=== PATIENT | male | born 1970 | race Two or more races ===

== ENCOUNTER → 2023-04-21 07:44 | Outpatient (CLI) | payer OTHER | END | disposition home or self-care (01) | LOC: NUCLEAR 07:44 | PROVIDERS: ATTEND Internal Medicine Gastroenterology | DX: C20 Malignant neoplasm of rectum (principal) ==

== ENCOUNTER 2023-06-07 11:30 | Inpatient (IN) | payer OTHER ==
[~2023-06-07] VITALS: Ht 172.7 cm; Wt 85.3 kg
[2023-06-13] MEDS ORDERED: CLONAZEPAM0.5 MG (10:05)
[2023-06-13] MEDS ORDERED: ESCITALOPRAM OX10 MG (10:05)
[2023-06-13] MEDS ORDERED: METRONIDAZOLE/SODIUM CHLORIDE 500 MG/100 ML PIGGYBACK IV ONE ×2 (10:38→15:43)
[2023-06-13] MEDS ORDERED: CEFTRIAXONE SODIUM 2,000 MG VIAL ONE (10:38)
[2023-06-13] MEDS ORDERED: MORPHINE SULFATE 4 MG/ML CARTRIDGE IV PRN (11:30)
[2023-06-13] MEDS ORDERED: 0.9 % SODIUM CHLORIDE 1,000 ML IV SCH (11:30)
[2023-06-13] MEDS ORDERED: ONDANSETRON HCL 2 MG/ML VIAL IV PRN (11:30)
[2023-06-13] MEDS ORDERED: OxyCODONE HCL 5 MG TABLET (ROXICODONE) PO PRN (11:30)
[2023-06-13] MEDS ORDERED: DEXTROSE 50 % IN WATER 0.5 G/ML DISP.SYRIN IV PRN (11:30)
[2023-06-13] MEDS ORDERED: CEFTRIAXONE SODIUM 2,000 MG VIAL IV SCH (12:00)
[2023-06-13] MEDS ORDERED: LIDOCAINE HCL 1%/Epi 20ML VIAL IJ ONE (12:00)
[2023-06-13] MEDS ORDERED: BUPIVACAINE HCL/PF 0.5% 30ML ML IJ ONE (12:00)
[2023-06-13] MEDS ORDERED: METRONIDAZOLE/SODIUM CHLORIDE 500 MG/100 ML PIGGYBACK IV SCH ×2 (12:00→17:00)
[2023-06-13] MEDS ORDERED: HYOSCYAMINE SULFATE 0.125 MG TAB.SUBL SL SCH (13:00)
[2023-06-13] MEDS ORDERED: ACETAMINOPHEN 500 MG GEL..CAP PO SCH (14:00)
[2023-06-13] MEDS ORDERED: ONDANSETRON HCL 2 MG/ML VIAL ONE (15:43)
[2023-06-13] MEDS ORDERED: INSULIN LISPRO 1,000 UNIT/10 ML UNITS SUBCUTANEO SCH (16:00)
[2023-06-13] MEDS ORDERED: GABAPENTIN 300 MG CAPSULE PO SCH (17:00)
[2023-06-13 18:11] LABS: ABG PH 7.407 (7.35-7.45); ABG PO2 60.3 mmHg (80-100); ABG pCO2 42.8 mmHg (35-45); BASE EXCESS 1.4 mmol/l; BICARBONATE 26.3 mmol/l (23-25); Tco2 27.6 mmol/l
[2023-06-13 18:12] LABS: allen test SATISFACTORY; o2 32 %; puncture site RADIAL RIGHT
[2023-06-13 18:13] LABS: HEMATOCRIT 41.5 % (39.0-48.0); MEAN CELL VOLUME 84.6 fL (80.0-100.00); MEAN CORPUSCULAR HEMOGLOBIN 28.5 pg (27.00-32.0); MEAN CORPUSCULAR HGB CONC 33.7 g/dl (32.0-36.0); PLATELET COUNT 156 K/uL (150-450); RED BLOOD COUNT 4.91 M/uL (4.00-6.00); RED CELL DISTRIBUTION WIDTH 14.3 % (11.5-14.5)
[2023-06-13 18:20] LABS: ALBUMIN 3.4 gm/dL (3.4-5.0); CALCIUM 8.2 mg/dL (8.5-10.1); CREATININE SERUM 0.72 mg/dL (0.70-1.30); GFR 114.19; MAGNESIUM 1.9 mg/dL (1.8-2.4); PHOSPHOROUS 2.8 mg/dL (2.5-4.9); POTASSIUM 3.8 mEq/L (3.5-5.1)
[2023-06-13] MEDS ORDERED: FAMOTIDINE/PF 20 MG/2 ML VIAL IV PUSH SCH (21:00)
[2023-06-14 06:54] LABS: HEMATOCRIT 42.1 % (39.0-48.0); HEMOGLOBIN 14.5 g/dL (13-16.00); MEAN CELL VOLUME 86.4 fL (80.0-100.00); MEAN CORPUSCULAR HEMOGLOBIN 29.8 pg (27.00-32.0); MEAN CORPUSCULAR HGB CONC 34.5 g/dl (32.0-36.0); PLATELET COUNT 148 K/uL (150-450); RED BLOOD COUNT 4.87 M/uL (4.00-6.00)
[2023-06-14 07:19] LABS: ALBUMIN 3.2 gm/dL (3.4-5.0); CREATININE SERUM 0.82 mg/dL (0.70-1.30); GFR 98.28; MAGNESIUM 1.9 mg/dL (1.8-2.4); PHOSPHOROUS 3.1 mg/dL (2.5-4.9); POTASSIUM 4.15 mEq/L (3.5-5.1)
[2023-06-14] MEDS ORDERED: PATIENTS OWN MEDICATION (MEDICAMENTO EN PISO) PO SCH (09:00)
[2023-06-14] MEDS ORDERED: ENOXAPARIN SODIUM 40 MG/0.4 ML SYRINGE SUBCUTANEO SCH (17:00)
[2023-06-15 06:49] LABS: HEMATOCRIT 42.8 % (39.0-48.0); HEMOGLOBIN 14.6 g/dL (13-16.00); MEAN CELL VOLUME 86.3 fL (80.0-100.00); MEAN CORPUSCULAR HEMOGLOBIN 29.5 pg (27.00-32.0); MEAN CORPUSCULAR HGB CONC 34.2 g/dl (32.0-36.0); PLATELET COUNT 150 K/uL (150-450); RED BLOOD COUNT 4.96 M/uL (4.00-6.00)
[2023-06-15 07:05] LABS: CALCIUM 8.5 mg/dL (8.5-10.1); CREATININE SERUM 0.69 mg/dL (0.70-1.30); GFR 119.94; MAGNESIUM 2.2 mg/dL (1.8-2.4); PHOSPHOROUS 2.2 mg/dL (2.5-4.9); POTASSIUM 4.03 mEq/L (3.5-5.1)
[2023-06-15 08:15] LABS: MANUAL PLATELET COUNT 206
[2023-06-15] MEDS ORDERED: ENOXAPARIN SODIUM 40 MG/0.4 ML SYRINGE SUBCUTANEO SCH (09:00)
[2023-06-15] MEDS ORDERED: POTASSIUM PHOS,M-BASIC-D-BASIC 3 MM/ML VIAL IV ONE (14:00)
[2023-06-16 13:10] LABS: ABG PH 7.445 (7.35-7.45); ABG PO2 77.3 mmHg (80-100); ABG pCO2 36.7 mmHg (35-45); BASE EXCESS 0.9 mmol/l; BICARBONATE 24.7 mmol/l (23-25); SaO2 95.9 %; Tco2 25.8 mmol/l
[2023-06-16 13:11] LABS: allen test SATISFACTORY; o2 21 %; puncture site RADIAL RIGHT
[2023-06-16] MEDS ORDERED: HYOSCYAMINE0.125 M1 SL (13:29)
[2023-06-16] MEDS ORDERED: TRAM1TAB98 PO (13:30)
[2023-06-16] MEDS ORDERED: INTESTINEX680 M1 PO (13:30)
[2023-06-16] MEDS ORDERED: PEPCID AC20 MG PO (13:30)
[2023-06-16] MEDS ORDERED: IMODIUM A-D2 MG PO (13:31)
== END 2023-06-16 15:07 | disposition home or self-care (01) | DRG 331 ==
LOC: O/R 06-13 07:43 → SURH 06-13 11:30
PROVIDERS: Internal Medicine Geriatric Medicine; ADMIT Surgery; ATTEND Surgery
PROC: 0DTN4ZZ Resection of Sigmoid Colon, Percutaneous Endoscopic Approach (ICD-10-PCS; 2023-06-13)
PROC: 0DBP4ZZ Excision of Rectum, Percutaneous Endoscopic Approach (ICD-10-PCS; 2023-06-13)
PROC: 3E0F7SF Introduction of Other Gas into Respiratory Tract, Via Natural or Artificial Opening (ICD-10-PCS; 2023-06-13)
PROC: 07BC4ZZ Excision of Pelvis Lymphatic, Percutaneous Endoscopic Approach (ICD-10-PCS; 2023-06-13)
PROC: 0DJD8ZZ Inspection of Lower Intestinal Tract, Via Natural or Artificial Opening Endoscopic (ICD-10-PCS; 2023-06-13)
PROC: 0D1B4Z4 Bypass Ileum to Cutaneous, Percutaneous Endoscopic Approach (ICD-10-PCS; principal; 2023-06-13 11:15)
DX: C20 Malignant neoplasm of rectum (principal); R59.0 Localized enlarged lymph nodes; R19.5 Other fecal abnormalities; K66.0 Peritoneal adhesions (postprocedural) (postinfection); G47.30 Sleep apnea, unspecified

== ENCOUNTER 2023-12-21 11:45 | Inpatient (IN) | payer OTHER ==
[~2023-12-21] VITALS: Ht 172.7 cm; Wt 73.9 kg
[~2023-12-21 11:45] MED LIST: CLONAZEPAM0.5 MG; ESCITALOPRAM OX10 MG; HYOSCYAMINE0.125 M1 SL; IMODIUM A-D2 MG PO; INTESTINEX680 M1 PO; LEXAPRO5 MG; PEPCID AC20 MG PO; TRAM1TAB98 PO
[2023-12-26] MEDS ORDERED: LIDOCAINE HCL 1%/EPINEPHRINE 20ML VIAL IJ SCH (13:00)
[2023-12-26] MEDS ORDERED: METRONIDAZOLE/SODIUM CHLORIDE 500 MG/100 ML PIGGYBACK IV SCH ×2 (13:00→17:00)
[2023-12-26] MEDS ORDERED: CEFTRIAXONE SODIUM 2,000 MG VIAL IV SCH (13:00)
[2023-12-26] MEDS ORDERED: CHLORHEXIDINE GLUCONATE 120 ML BOTTLE TOP SCH (13:00)
[2023-12-26] MEDS ORDERED: BUPIVACAINE HCL 30 ML VIAL IJ SCH (13:00)
[2023-12-26] MEDS ORDERED: MORPHINE SULFATE 4 MG/ML CARTRIDGE IV PRN (13:30)
[2023-12-26] MEDS ORDERED: OxyCODONE HCL 5 MG TABLET (ROXICODONE) PO PRN (13:30)
[2023-12-26] MEDS ORDERED: DEXTROSE 50 % IN WATER 0.5 G/ML DISP.SYRIN IV PRN (13:30)
[2023-12-26] MEDS ORDERED: ONDANSETRON HCL 2 MG/ML VIAL IV PRN (13:30)
[2023-12-26] MEDS ORDERED: 0.9 % SODIUM CHLORIDE 1,000 ML IV SCH (13:30)
[2023-12-26] MEDS ORDERED: ACETAMINOPHEN 500 MG GEL..CAP PO SCH (14:00)
[2023-12-26] MEDS ORDERED: MORPHINE SULFATE 4 MG/ML VIAL IV ONE ×2 (14:15→16:10)
[2023-12-26 16:24] LABS: ABG PH 7.417 (7.35-7.45); ABG PO2 212.8 mmHg (80-100); ABG pCO2 40.9 mmHg (35-45); BASE EXCESS 1.1 mmol/l; BICARBONATE 25.8 mmol/l (23-25); SaO2 99.8 %
[2023-12-26 16:27] LABS: allen test SATISFACTORY; o2 40 %; puncture site RADIAL LEFT
[2023-12-26] MEDS ORDERED: HYOSCYAMINE SULFATE 0.125 MG TAB.SUBL SL SCH (17:00)
[2023-12-26] MEDS ORDERED: GABAPENTIN 300 MG CAPSULE PO SCH (17:00)
[2023-12-26] MEDS ORDERED: POLYETHYLENE GLYCOL 3350 17 GM BLIST.PACK PO SCH (17:00)
[2023-12-26 17:34] LABS: HEMOGLOBIN 13.9 g/dL (13-16.00); MEAN CELL VOLUME 88.8 fL (80.0-100.00); MEAN CORPUSCULAR HEMOGLOBIN 30.1 pg (27.00-32.0); MEAN CORPUSCULAR HGB CONC 33.9 g/dl (32.0-36.0); PLATELET COUNT 159 K/uL (150-450); RED BLOOD COUNT 4.62 M/uL (4.00-6.00); RED CELL DISTRIBUTION WIDTH 14.8 % (11.5-14.5)
[2023-12-26 17:58] LABS: ALBUMIN 3.8 gm/dL (3.4-5.0); CALCIUM 8.8 mg/dL (8.5-10.1); CREATININE SERUM 0.73 mg/dL (0.70-1.30); GFR 111.97; PHOSPHOROUS 3.1 mg/dL (2.5-4.9); POTASSIUM 3.77 mEq/L (3.5-5.1)
[2023-12-26 18:45] VITALS: BP 125/61; O2SAT 96
[2023-12-26] MEDS ORDERED: FAMOTIDINE/PF 20 MG/2 ML VIAL IV PUSH SCH (21:00)
[2023-12-27] VITALS (7 sets, daily range): BP systolic 105–119; BP diastolic 59–76; O2SAT 94–98
[2023-12-27 07:45] LABS: HEMATOCRIT 37.8 % (39.0-48.0); MEAN CELL VOLUME 89.1 fL (80.0-100.00); MEAN CORPUSCULAR HEMOGLOBIN 30.7 pg (27.00-32.0); MEAN CORPUSCULAR HGB CONC 34.4 g/dl (32.0-36.0); PLATELET COUNT 152 K/uL (150-450); RED BLOOD COUNT 4.24 M/uL (4.00-6.00); RED CELL DISTRIBUTION WIDTH 14.6 % (11.5-14.5)
[2023-12-27 08:39] LABS: ALBUMIN 3.4 gm/dL (3.4-5.0); CALCIUM 8.5 mg/dL (8.5-10.1); CREATININE SERUM 0.77 mg/dL (0.70-1.30); GFR 105.28; MAGNESIUM 1.9 mg/dL (1.8-2.4); PHOSPHOROUS 2.9 mg/dL (2.5-4.9); POTASSIUM 4.7 mEq/L (3.5-5.1)
[2023-12-27] MEDS ORDERED: PATIENTS OWN MEDICATION (MEDICAMENTO EN PISO) PO SCH (09:00)
[2023-12-27] MEDS ORDERED: ENOXAPARIN SODIUM 40 MG/0.4 ML SYRINGE SUBCUTANEO SCH (17:00)
[2023-12-27] MEDS ORDERED: GABAPENTIN 100 MG CAPSULE PO SCH (17:00)
[2023-12-27] MEDS ORDERED: GABAPENTIN 300 MG CAPSULE PO SCH (21:00)
[2023-12-28] VITALS (7 sets, daily range): BP systolic 109–115; BP diastolic 67–71; O2SAT 90–97
[2023-12-28] MEDS ORDERED: ENOXAPARIN SODIUM 40 MG/0.4 ML SYRINGE SUBCUTANEO SCH (09:00)
[2023-12-28 09:14] LABS: HEMATOCRIT 37.6 % (39.0-48.0); HEMOGLOBIN 12.9 g/dL (13-16.00); MEAN CELL VOLUME 89.2 fL (80.0-100.00); MEAN CORPUSCULAR HEMOGLOBIN 30.5 pg (27.00-32.0); MEAN CORPUSCULAR HGB CONC 34.1 g/dl (32.0-36.0); PLATELET COUNT 139 K/uL (150-450); RED BLOOD COUNT 4.22 M/uL (4.00-6.00); RED CELL DISTRIBUTION WIDTH 14.4 % (11.5-14.5)
[2023-12-28 10:19] LABS: CALCIUM 8.2 mg/dL (8.5-10.1); CREATININE SERUM 0.71 mg/dL (0.70-1.30); GFR 115.61; MAGNESIUM 1.9 mg/dL (1.8-2.4); POTASSIUM 3.53 mEq/L (3.5-5.1)
[2023-12-28] MEDS ORDERED: POTASSIUM PHOS,M-BASIC-D-BASIC 3 MM/ML VIAL IV NR (11:15)
[2023-12-29 06:24] VITALS: O2SAT 98
[2023-12-29 08:32] VITALS: BP 125/64; O2SAT 95
[2023-12-29] MEDS ORDERED: LACTOBACILLUS ACIDOPHILUS 1 CAP CAP PO SCH (09:00)
[2023-12-29 09:38] VITALS: O2SAT 97
[2023-12-29] MEDS ORDERED: HYOSCYAMINE0.125 M1 SL (11:10)
[2023-12-29] MEDS ORDERED: PEPCID AC20 MG PO (11:10)
[2023-12-29] MEDS ORDERED: TRAM1TAB98 PO (11:11)
== END 2023-12-29 12:25 | disposition home or self-care (01) | DRG 348 ==
LOC: O/R 12-26 05:30 → SURH 12-26 11:45
PROVIDERS: Internal Medicine Geriatric Medicine; ADMIT Surgery; ATTEND Surgery
PROC: 0DBB4ZZ Excision of Ileum, Percutaneous Endoscopic Approach (ICD-10-PCS; principal; 2023-12-26 14:15)
PROC: 4A12X4Z Monitoring of Cardiac Electrical Activity, External Approach (ICD-10-PCS; 2023-12-27)
DX: Z43.2 Encounter for attention to ileostomy (principal); C20 Malignant neoplasm of rectum; R19.5 Other fecal abnormalities; G47.30 Sleep apnea, unspecified

== ENCOUNTER 2024-05-01 08:48 | Outpatient (CLI) | payer OTHER | END 2024-05-01 08:54 | disposition home or self-care (01) | LOC: TOM 08:48 | DX: C20 Malignant neoplasm of rectum (principal) ==

== ENCOUNTER → 2024-09-03 | Outpatient (CLI) | payer OTHER | END | disposition home or self-care (01) | LOC: TOM 07:48 | DX: C20 Malignant neoplasm of rectum (principal) ==